=== PATIENT | male | born 2000 | race African-American/Black ===

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

== ENCOUNTER 2020-12-14 11:28 | Emergency (ER) | payer SELFPAY ==
[2020-12-14 11:37] VITALS: BP 108/71; PULSE 68; TEMP 98.1; BMI 20.5
== END 2020-12-14 13:01 | disposition home or self-care (01) ==
LOC: JERFT 11:28
DX: A74.9 Chlamydial infection, unspecified (principal); A54.9 Gonococcal infection, unspecified
CPT/HCPCS: 36415; 87491; 87591; 99284-25